=== PATIENT | male | born 1975 | race Two or more races ===

== ENCOUNTER 2016-10-27 14:44 | Emergency (ER) | payer MEDICAID ==
[~2016-10-27] VITALS: Ht 167.6 cm; Wt 77.1 kg
[2016-10-27 14:54] VITALS: BP 136/79
[2016-10-27] MEDS ORDERED: IV SET PRIMARY 1 EA INFUS.SET MC ONE (15:10)
[2016-10-27] MEDS ORDERED: IV NS 0.9% 1,000 ML ONE (15:10)
[2016-10-27] MEDS ORDERED: IV NS 0.9% 1,000 ML BAG IV ONE (15:30)
[2016-10-27 15:44] LABS: BASOPHILS % (AUTO) 0.3 % (0.0-2.0); DIFF TOTAL % 100 %; EOSINOPHILS # (AUTO) 0.3 /CMM (0.0-0.7); EOSINOPHILS % (AUTO) 2.9 % (0.0-6.0); HEMATOCRIT 44 % (39-51); HEMOGLOBIN 14.7 g/dL (13.5-17.5); LYMPHOCYTES # (AUTO) 2.6 /CMM (0.8-4.8); LYMPHOCYTES % (AUTO) 22.4 % (20.0-44.0); MEAN CORPUSCULAR HEMOGLOBIN 29 PG (26.0-33.0); MEAN CORPUSCULAR HGB CONC 34 g/dl (31.0-36.0); MEAN CORPUSCULAR VOLUME 87 fL (80-96); MONOCYTES % (AUTO) 8.3 % (2.0-12.0); NEUTROPHILS # (AUTO) 7.7 /CMM (1.8-8.9); NEUTROPHILS % (AUTO) 66.1 % (43.0-81.0); PLATELET COUNT (AUTO) 254 /CMM (150-450); RED BLOOD CELL COUNT(AUTO) 5.03 MIL/uL (4.5-6.0); WHITE BLOOD COUNT (AUTO) 11.6 K/uL (4.3-11.0)
[2016-10-27 16:11] LABS: CALCIUM, SERUM 9.3 mg/dL (8.5-10.1); CREATININE 1.1 mg/dL (0.6-1.3); POTASSIUM 4.7 mmol/L (3.5-5.1)
[2016-10-27] MEDS ORDERED: ACETAMINOPHEN 325 MG TABLET ONE (16:45)
[2016-10-27] MEDS ORDERED: ACETAMINOPHEN 325 MG TABLET PO ONE (17:00)
== END 2016-10-27 17:05 | disposition home or self-care (01) ==
LOC: ER 14:47
DX: R51 Headache (principal); E03.9 Hypothyroidism, unspecified
CPT/HCPCS: 36415; 80048-TC; 85025-TC; A4606; J7030; Z7610